=== PATIENT | female | born 1945 | race Caucasian/White ===

== ENCOUNTER 2023-09-17 10:08 | Outpatient (CLI) | payer MEDICARE, BC | END 2023-09-17 10:09 | disposition home or self-care (01) | LOC: CSHMAMMO 10:08 | PROVIDERS: ATTEND Student in an Organized Health Care Education/Training Program | DX: Z13.820 Encounter for screening for osteoporosis (principal); Z78.0 Asymptomatic menopausal state; M81.0 Age-related osteoporosis without current pathological fracture; M85.89 Other specified disorders of bone density and structure, multiple sites | CPT/HCPCS: 77080 ==